=== PATIENT | female | born 1970 | race Caucasian/White ===

== ENCOUNTER 2017-06-09 13:06 | Day surgery (SDC) | payer BC ==
[~2017-06-09] VITALS: Ht 170.2 cm; Wt 113.7 kg
[2017-06-09 13:33] VITALS: BP 185/106; PULSE 90; TEMP 98.5
[2017-06-09 13:40] VITALS: BP 180/114; PULSE 90; TEMP 98.5
[2017-06-09] MEDS ORDERED: SYNTHROID0.05 MG/TA PO (14:03)
[2017-06-09] MEDS ORDERED: PREDNISONE 5MG5 MG PO (14:03)
[2017-06-09] MEDS ORDERED: SINGULAIR 110 MG/TAB PO (14:04)
[2017-06-09] MEDS ORDERED: EFFEXOR-XR150 MG PO (14:04)
[2017-06-09] MEDS ORDERED: XANAX .25M0.25 MG/TA PO (14:05)
[2017-06-09] MEDS ORDERED: MICROGESTIN FE1 TA1 PO (14:06)
[2017-06-09] MEDS ORDERED: 00186-0372-20 IH (14:06)
[2017-06-09] MEDS ORDERED: AMBIEN 5MG TABLE5 MG PO (14:07)
[2017-06-09] MEDS ORDERED: FLEXERIL 1010 MG/TAB PO (14:09)
[2017-06-09] MEDS ORDERED: ZOFRAN ODT4 MG PO (14:09)
[2017-06-09 15:50] VITALS: BP 150/108; PULSE 85; TEMP 98.5
[2017-06-09 16:05] VITALS: BP 162/101; PULSE 89
[2017-06-09 16:20] VITALS: BP 130/101; PULSE 73
[2017-06-09 17:08] VITALS: BP 162/92; PULSE 81
== END 2017-06-09 16:35 | disposition home or self-care (01) ==
LOC: SDCO 13:06
DX: K58.0 Irritable bowel syndrome with diarrhea (principal); R19.5 Other fecal abnormalities; R19.4 Change in bowel habit; D64.9 Anemia, unspecified; J45.909 Unspecified asthma, uncomplicated; E07.9 Disorder of thyroid, unspecified; E66.9 Obesity, unspecified; Z90.49 Acquired absence of other specified parts of digestive tract
CPT/HCPCS: OP; J2250; J2405; J3010; J7030

== ENCOUNTER 2018-07-06 15:00 | Outpatient (RCR) | payer BC ==
[2018-05-25 15:30] LABS: MEAN CELL VOLUME 71 fl (80.0-100.0); MEAN CORPUSCULAR HGB CONC 30 g/dl (33.0-37.0); PLATELET COUNT 363 K/mm3 (130-400); REDCELL DISTRIBUTION WIDTH-CV 17.2 % (11.5-14.5)
[2018-05-25 15:43] LABS: ALBUMIN 4.1 gm/dL (3.5-5.0); BILIRUBIN,TOTAL 0.3 mg/dL (0.0-1.0); CALCIUM 8.9 mg/dL (8.4-10.2); CREATININE, serum 0.64 mg/dL (0.52-1.25); POTASSIUM 3.3 mmol/L (3.4-5.0); TOTAL PROTEIN 7.8 gm/dL (6.4-8.2)
[2018-05-25 15:49] LABS: HEMATOCRIT 30.3 % (37.0-47.0); HEMOGLOBIN 9.1 g/dl (12.5-16.0); MEAN CORPUSCULAR HEMOGLOBIN 21 pg (27.0-31.0)
[2018-05-25 16:35] VITALS: BP 152/77; PULSE 72; TEMP 98.1
[2018-05-25 17:06] VITALS: BP 157/84; PULSE 71
[2018-05-25 17:35] VITALS: BP 157/97; PULSE 71
[2018-05-25 18:00] VITALS: BP 157/74; PULSE 71
[2018-05-25 18:40] VITALS: BP 161/81; PULSE 70
[2018-06-08 15:42] LABS: MEAN CELL VOLUME 71 fl (80.0-100.0); MEAN CORPUSCULAR HGB CONC 30 g/dl (33.0-37.0); MEAN PLATELET VOLUME 9.1 fl (7.4-10.4); PLATELET COUNT 367 K/mm3 (130-400); RED BLOOD COUNT 4.28 M/mm3 (4.10-5.30); REDCELL DISTRIBUTION WIDTH-CV 17.1 % (11.5-14.5)
[2018-06-08 15:43] LABS: HEMATOCRIT 30.5 % (37.0-47.0); HEMOGLOBIN 9.2 g/dl (12.5-16.0); MEAN CORPUSCULAR HEMOGLOBIN 21 pg (27.0-31.0)
[2018-06-08 15:53] LABS: ALBUMIN 4.3 gm/dL (3.5-5.0); BILIRUBIN,TOTAL 0.3 mg/dL (0.0-1.0); CALCIUM 8.8 mg/dL (8.4-10.2); CREATININE, serum 0.66 mg/dL (0.52-1.25); POTASSIUM 3.5 mmol/L (3.4-5.0)
[2018-06-08 17:07] VITALS: BP 172/75; PULSE 70; TEMP 98.1
[2018-06-08 17:30] VITALS: BP 160/77; PULSE 70; TEMP 98.6
[2018-06-08 18:00] VITALS: BP 171/79; PULSE 70
[2018-06-08 18:35] VITALS: BP 155/90; PULSE 70; TEMP 98.5
[2018-06-08 19:00] VITALS: BP 154/87; PULSE 70
[~2018-07-06] VITALS: Ht 170.2 cm; Wt 110.0 kg
[~2018-07-06 15:00] MED LIST: 00186-0372-20 IH; AMBIEN 5MG TABLE5 MG PO; EFFEXOR-XR150 MG PO; FLEXERIL 1010 MG/TAB PO; FLONASE SENSIM9.9 ML NS; MICROGESTIN FE1 TA1 PO; PREDNISONE 5MG5 MG PO; SINGULAIR 110 MG/TAB PO; SUDAFED60 MG PO; SYNTHROID0.05 MG/TA PO; TYLENOL PM EXTR1 TA1 PO; XANAX .25M0.25 MG/TA PO; ZOFRAN ODT4 MG PO
[2018-07-06 15:14] LABS: MEAN CELL VOLUME 69 fl (80.0-100.0); MEAN CORPUSCULAR HGB CONC 30 g/dl (33.0-37.0); MEAN PLATELET VOLUME 9.5 fl (7.4-10.4); PLATELET COUNT 385 K/mm3 (130-400); RED BLOOD COUNT 4.35 M/mm3 (4.10-5.30); REDCELL DISTRIBUTION WIDTH-CV 16.8 % (11.5-14.5)
[2018-07-06 15:17] LABS: HEMATOCRIT 29.9 % (37.0-47.0); HEMOGLOBIN 8.9 g/dl (12.5-16.0); MEAN CORPUSCULAR HEMOGLOBIN 20 pg (27.0-31.0)
[2018-07-06 15:51] VITALS: BP 148/72; BP 154/87; PULSE 68; PULSE 70; TEMP 98; TEMP 98.5
== END 2018-07-06 18:27 | disposition home or self-care (01) ==
LOC: EUO 15:00
PROVIDERS: Internal Medicine Gastroenterology
DX: K50.90 Crohn's disease, unspecified, without complications (principal)
CPT/HCPCS: J1200; J2920; J2930; J7050; Q5103

== ENCOUNTER 2018-08-06 13:09 | Day surgery (SDC) | payer BC ==
[~2018-08-06] VITALS: Ht 170.2 cm; Wt 107.0 kg
[2018-08-06 13:28] VITALS: BP 144/78; PULSE 81; TEMP 98.4
[2018-08-06 15:15] VITALS: BP 126/79; PULSE 80; TEMP 97.8
[2018-08-06 15:30] VITALS: BP 158/79; PULSE 75
== END 2018-08-06 15:59 | disposition home or self-care (01) ==
LOC: SDCO 13:09
DX: K51.90 Ulcerative colitis, unspecified, without complications (principal); K92.1 Melena; D50.9 Iron deficiency anemia, unspecified; E03.9 Hypothyroidism, unspecified; J45.909 Unspecified asthma, uncomplicated; R53.82 Chronic fatigue, unspecified; E66.01 Morbid (severe) obesity due to excess calories; Z68.38 Body mass index [BMI] 38.0-38.9, adult; Z88.1 Allergy status to other antibiotic agents; Z88.2 Allergy status to sulfonamides; Z90.49 Acquired absence of other specified parts of digestive tract
CPT/HCPCS: OP; J2704

== ENCOUNTER 2019-02-17 13:41 | Outpatient (CLI) | payer BC ==
[~2019-02-17] VITALS: Ht 170.2 cm; Wt 109.6 kg
[2019-02-17 14:10] LABS: HEMATOCRIT 30.5 % (37.0-47.0); HEMOGLOBIN 8.5 g/dl (12.5-16.0); MEAN CELL VOLUME 66 fl (80.0-100.0); MEAN CORPUSCULAR HEMOGLOBIN 18 pg (27.0-31.0); MEAN CORPUSCULAR HGB CONC 28 g/dl (33.0-37.0); MEAN PLATELET VOLUME 8.7 fl (7.4-10.4); PLATELET COUNT 334 K/mm3 (130-400); RED BLOOD COUNT 4.61 M/mm3 (4.10-5.30); REDCELL DISTRIBUTION WIDTH-CV 19.3 % (11.5-14.5)
[2019-02-17 14:12] LABS: ALBUMIN 4.3 gm/dL (3.5-5.0); BILIRUBIN,TOTAL 0.5 mg/dL (0.0-1.0); CALCIUM 9.2 mg/dL (8.4-10.2); CREATININE, serum 0.65 (0.52-1.25); POTASSIUM 3.4 mmol/L (3.4-5.0); TOTAL PROTEIN 8.7 gm/dL (6.4-8.2)
[2019-02-17 14:42] VITALS: BP 146/96; PULSE 80; TEMP 98.6
[2019-02-17 15:12] VITALS: BP 138/95; PULSE 85; TEMP 98.2
[2019-02-17 15:45] VITALS: BP 135/76; PULSE 78; TEMP 98.2
[2019-02-17 16:15] VITALS: BP 152/88; PULSE 81
[2019-02-17 16:40] VITALS: BP 160/61; PULSE 88; TEMP 98.4
[2019-02-17 17:03] VITALS: BP 154/78; PULSE 73; TEMP 98.6
== END 2019-02-17 17:03 | disposition home or self-care (01) ==
LOC: EUO 13:41
PROVIDERS: Internal Medicine Gastroenterology
DX: K50.90 Crohn's disease, unspecified, without complications (principal); Z79.899 Other long term (current) drug therapy
CPT/HCPCS: J1200; J2930; J7050; Q5103